=== PATIENT | male | born 1980 | race Caucasian/White ===

== ENCOUNTER 2024-07-07 11:53 | Outpatient (CLI) | payer OTHER | END 2024-07-07 11:56 | disposition home or self-care (01) | LOC: RAD 11:53 | DX: M54.50 Low back pain, unspecified (principal); M99.01 Segmental and somatic dysfunction of cervical region; M99.02 Segmental and somatic dysfunction of thoracic region; M99.03 Segmental and somatic dysfunction of lumbar region; M99.04 Segmental and somatic dysfunction of sacral region; M99.05 Segmental and somatic dysfunction of pelvic region ==